=== PATIENT | female | born 1995 | race Caucasian/White ===

== ENCOUNTER 2017-02-28 10:15 | Emergency (ER) | payer OTHER ==
[~2017-02-28] VITALS: Ht 157.5 cm; Wt 123.0 kg
[2017-02-28 10:18] VITALS: TEMP 37.1; Ht 157.5 cm; Wt 123.0 kg
[2017-02-28 11:45] LABS: PREG INTERNAL NEGATIVE QC NEG CLEAR BACKGROUND; PREG INTERNAL POSITIVE QC POS CONTROL LINE
[2017-02-28] MEDS ORDERED: LEVO200T PO (11:45)
[2017-02-28] MEDS ORDERED: ERGO500037 PO (11:45)
[2017-02-28 11:48] LABS: URINE APPEARANCE CLEAR (CLEAR); URINE BILIRUBIN NEG (NEG); URINE COLOR YELLOW; URINE EPITHELIAL CELL AUTO >30 /lpf (0-5); URINE NITRITE NEG (NEG); URINE SPECIFIC GRAVITY 1.022 (1.000-1.030); UROBILINOGEN NEG (NEG); ZZUR CULT IF INDIC CLEAN CATCH NO
[2017-02-28 11:50] LABS: MANUAL MICROSCOPIC REQUIRED? NO; REVIEW REQ? NO
[2017-02-28 12:22] LABS: BASO % 0.4 %; BASO ABS # 0.03 K/uL (0-0.2); COMPLETE YES; EOS % 2.4 %; HEMATOCRIT 40.4 % (37-47); IG% 0.3 %; LYMPH % 36.2 %; MEAN CELL VOLUME 79.1 fL (80-100); MEAN CORPUSCULAR HEMOGLOBIN 25.4 pg (25-34); MEAN CORPUSCULAR HGB CONC 32.2 g/dl (32-36); MEAN PLATELET VOLUME 9.1 fL (7.4-10.4); MONO % 10.9 %; NEUT % 49.8 %; PLATELET COUNT 278 K/uL (130-400); RED BLOOD COUNT 5.11 M/uL (4.2-5.4); WHITE BLOOD COUNT 7.45 K/uL (4.8-10.8)
--- NOTE | 2017-02-28 12:39 | DIAGNOSTIC IMAGING REPORT ---
CHEST 2 VIEWS ROUTINE CLINICAL HISTORY: fever/cough eval fro pna chest pain COMPARISON STUDY: No previous studies for comparison. FINDINGS: The bones soft tissues and hemidiaphragms are normal. The cardiomediastinal silhouette is normal. The lungs are clear. The pulmonary vasculature is normal. IMPRESSION: Negative chest. The above report was generated using voice recognition software. It may contain grammatical, syntax or spelling errors. Electronically signed by: Gregorio Joya M.D. 02/28/2017 12:38 PM Dictated Date/Time: 02/28/2017 12:37 PM
[2017-02-28 12:40] LABS: BUN/CREATININE RATIO 14.8 (10-20); CALCIUM 9.3 mg/dl (8.5-10.1); CREATININE 0.7 mg/dl (0.60-1.20)
[2017-02-28 12:43] LABS: ALB/GLOB RATIO 0.7 (0.9-2)
--- NOTE | 2017-02-28 12:46 | DIAGNOSTIC IMAGING REPORT ---
ABD/PELVIS WITHOUT FOR STONE CT DOSE: 1066.20 mGycm HISTORY: Flank pain flank pain r>l eval for stone TECHNIQUE: Multiaxial CT images of the abdomen and pelvis were performed without the use of intravenous and oral contrast according to the standard department stone protocol. A dose lowering technique was utilized adhering to the principles of ALARA. COMPARISON STUDY: None. FINDINGS: Lung bases are clear. Liver spleen and pancreas are unremarkable. 3 mm nonobstructing calcification mid pole right kidney. No evidence for renal hydronephrosis. Study is negative for an obstructing urinary tract calculus. Ureters are normal in course and caliber. Bowel pattern is nonobstructive. The appendix is normal. There are several scattered diverticuli. There is no evidence of diverticulitis. Ureters anteflexed. There is no significant free fluid within the pelvic cul-de-sac. Inguinal regions are unremarkable. IMPRESSION: 1. Nonobstructing calcification right kidney. 2. No evidence for an obstructing urinary tract calculus. 3. Studies otherwise negative. The above report was generated using voice recognition software. It may contain grammatical, syntax or spelling errors. Electronically signed by: Gregorio Joya M.D. 02/28/2017 12:45 PM Dictated Date/Time: 02/28/2017 12:39 PM
--- NOTE | 2017-02-28 15:20 | DIAGNOSTIC IMAGING REPORT ---
CT SCAN OF THE LUMBAR SPINE WITHOUT IV CONTRAST CLINICAL HISTORY: Low back pain. COMPARISON STUDY: Abdominal CT performed the same day 02/28/2017. TECHNIQUE: CT scan of the lumbar spine is performed from the lower thoracic spine to the sacrum. Images reviewed in the axial, sagittal, and coronal planes. IV contrast was not administered for this examination. A dose lowering technique was utilized adhering to the principles of ALARA. The examination is degraded by a large body habitus, and by streak artifact from the body wall abutting the CT gantry. FINDINGS: The skeletal structures are well mineralized. There is no evidence of fracture or subluxation involving the lumbar spine. Vertebral body height and alignment are maintained. There is partial sacralization of the L5 vertebral body. The transverse and spinous processes are intact. There is no evidence of spondylolysis. No lytic or blastic lesion is seen. The disc spaces are maintained. A disc herniation is suggested at L4-L5. No significant facet arthropathy is identified. The paraspinous soft tissues are within normal limits. There is a nonobstructing right renal calculus. IMPRESSION: 1. No acute bony abnormality is seen involving the lumbar spine. 2. A disc herniation is noted at L4-L5. 3. Nonobstructing right renal calculus. Dictated: 02/28/2017 2:55 PM Transcribed: 02/28/2017 3:19 PM Johnathan Electronically signed by: Raymon Thomas M.D. 02/28/2017 3:33 PM Dictated Date/Time: 02/28/2017 2:55 PM
--- NOTE | 2017-02-28 16:33 | DIAGNOSTIC IMAGING REPORT ---
ULTRASOUND OF THE PELVIS CLINICAL HISTORY: Pelvic pain. COMPARISON STUDY: Pelvic CT dated 02/28/2017. TECHNIQUE: Real-time, grayscale, and color flow sonography of the pelvis is performed both transabdominally and endovaginally. Images are reviewed in the transverse and longitudinal planes. FINDINGS: Uterus: The uterus is normal in size and echotexture, measuring 9.2 x 3.5 x 3.8 cm. Endometrium: The endometrium is thickened, measuring up to 1.7 cm. Ovaries: The ovaries are normal in size and morphology. The right ovary measures 3.1 x 1.9 x 4.0 cm and the left ovary measures 1.7 x 1.4 x 1.3 cm. Small follicles are noted bilaterally. Normal Doppler waveforms are shown within both ovaries. Pelvis: There is trace free fluid in the cul-de-sac. No concerning adnexal lesion is seen. IMPRESSION: 1. No acute sonographic abnormality is seen in the pelvis. 2. The endometrial stripe appears thickened measure up to 1.7 cm. This may be related to the patient's cycle. Clinical correlation will be required. 3. Trace free fluid in the cul-de-sac is likely within physiologic limits. Electronically signed by: Raymon Thomas M.D. 02/28/2017 4:31 PM Dictated Date/Time: 02/28/2017 4:29 PM
[2017-02-28 17:05] VITALS: BP 118/72; PULSE 91; O2SAT 100
--- NOTE | 2017-02-28 17:05 | EMERGENCY ROOM VISIT NOTE ---
History Report prepared by Jeffy: Otilio Dixon Under the Supervision of: Dr. Gonzales Herrera M.D. First contact with patient: 11:21 Chief Complaint: ABDOMINAL PAIN Stated Complaint: ABD PAIN AND PAIN IN KIDNEY AREA History of Present Illness The patient is a 21 year old female who presents to the Emergency Room with complaints of waxing and waning bilateral flank pain beginning three weeks ago. Her pain is worse on the right side. The patient also complains of back pain, productive cough, and fever of 103 degrees. Her cough produces a green sputum. Her fever was noted four days ago. She denies burning with urination, but states that she has been able to see blood in her urine. The patient has been seen at [facility] four times for her symptoms, and was scheduled for a CT today. She states that her pain intensified today, and she is unable to wait for her scheduled CT. She has a history of hypothyroidism and is on Levothyroxine. She denies chills, diarrhea, or vomiting. Source of History: patient Onset: Three weeks ago Position: other (bilateral flanks, worse on the right) Timing: waxes/wanes Associated Symptoms: + fevers (103 degrees, four days ago), + cough ( productive), + back pain, No chills, No vomiting, No diarrhea Review of Systems See HPI for pertinent positives & negatives. A total of 10 systems reviewed and were otherwise negative. Past Medical & Surgical Medical Problems: (1) Hypothyroidism Family History No pertinent family history stated. Social History Smoking Status: Never Smoker Occupation Status: [employer] student Current/Historical Medications Scheduled Ergocalciferol (Vitamin D 69130 Unit), 50,000 UNIT PO 2XWK Levothyroxine Sodium (Synthroid), 200 MCG PO DAILY Allergies Coded Allergies: No Known Allergies (Unverified , 02/28/17) Physical Exam Vital Signs Date Time Temp Pulse Resp B/P (MAP) Pulse Ox O2 Delivery O2 Flow Rate FiO2 02/28/17 15:19 76 20 107/66 100 Room Air 02/28/17 14:28 79 110/65 100 Room Air 02/28/17 12:09 77 17 130/78 100 Room Air 02/28/17 10:18 37.1 95 16 135/82 100 Room Air Physical Exam Constitutional: Vital signs reviewed. Eyes: Pupils are equal round reactive to light. Conjunctiva are noninjected. ENT: Pharynx is clear without erythema or exudate. Mucous membranes are moist. Neck supple without meningeal signs. Respiratory: Clear to auscultation bilaterally. Breath sounds are equal bilaterally. Cardiovascular: Regular rate and rhythm. No rubs or gallops. GI: Soft, nondistended and nontender. Bowel sounds are present. Musculoskeletal: No peripheral edema. No lower extremity tenderness. No CVA tenderness. Integumentary: No cyanosis. Neurological: The patient is awake and alert. No focal deficits. Psychiatric: Normal affect. Medical Decision & Procedures ER Provider Diagnostic Interpretation: Radiology results as stated below per my review and the radiologist's interpretation: CHEST 2 VIEWS ROUTINE FINDINGS: The bones soft tissues and hemidiaphragms are normal. The cardiomediastinal silhouette is normal. The lungs are clear. The pulmonary vasculature is normal. IMPRESSION: Negative chest. The above report was generated using voice recognition software. It may contain grammatical, syntax or spelling errors. Electronically signed by: Gregorio Joya M.D. 02/28/2017 12:38 PM ABD/PELVIS WITHOUT FOR STONE FINDINGS: Lung bases are clear. Liver spleen and pancreas are unremarkable. 3 mm nonobstructing calcification mid pole right kidney. No evidence for renal hydronephrosis. Study is negative for an obstructing urinary tract calculus. Ureters are normal in course and caliber. Bowel pattern is nonobstructive. The appendix is normal. There are several scattered diverticuli. There is no evidence of diverticulitis. Ureters anteflexed. There is no significant free fluid within the pelvic cul-de-sac. Inguinal regions are unremarkable. IMPRESSION: 1. Nonobstructing calcification right kidney. 2. No evidence for an obstructing urinary tract calculus. 3. Studies otherwise negative. The above report was generated using voice recognition software. It may contain grammatical, syntax or spelling errors. Electronically signed by: Gregorio Joya M.D. 02/28/2017 12:[address] SCAN OF THE LUMBAR SPINE WITHOUT IV CONTRAST FINDINGS: The skeletal structures are well mineralized. There is no evidence of fracture or subluxation involving the lumbar spine. Vertebral body height and alignment are maintained. There is partial sacralization of the L5 vertebral body. The transverse and spinous processes are intact. There is no evidence of spondylolysis. No lytic or blastic lesion is seen. The disc spaces are maintained. A disc herniation is suggested at L4-L5. No significant facet arthropathy is identified. The paraspinous soft tissues are within normal limits. There is a nonobstructing right renal calculus. IMPRESSION: 1. No acute bony abnormality is seen involving the lumbar spine. 2. A disc herniation is noted at L4-L5. 3. Nonobstructing right renal calculus. Dictated: 02/28/2017 2:55 PM Transcribed: 02/28/2017 3:19 PM [email or web address] Electronically signed by: Raymon Thomas M.D. 02/28/2017 3:33 PM ULTRASOUND OF THE PELVIS FINDINGS: Uterus: The uterus is normal in size and echotexture, measuring 9.2 x 3.5 x 3.8 cm. Endometrium: The endometrium is thickened, measuring up to 1.7 cm. Ovaries: The ovaries are normal in size and morphology. The right ovary measures 3.1 x 1.9 x 4.0 cm and the left ovary measures 1.7 x 1.4 x 1.3 cm. Small follicles are noted bilaterally. Normal Doppler waveforms are shown within both ovaries. Pelvis: There is trace free fluid in the cul-de-sac. No concerning adnexal lesion is seen. IMPRESSION: 1. No acute sonographic abnormality is seen in the pelvis. 2. The endometrial stripe appears thickened measure up to 1.7 cm. This may be related to the patient's cycle. Clinical correlation will be required. 3. Trace free fluid in the cul-de-sac is likely within physiologic limits. Electronically signed by: Raymon Thomas M.D. 02/28/2017 4:31 PM ULTRASOUND OF THE PELVIS FINDINGS: Uterus: The uterus is normal in size and echotexture, measuring 9.2 x 3.5 x 3.8 cm. Endometrium: The endometrium is thickened, measuring up to 1.7 cm. Ovaries: The ovaries are normal in size and morphology. The right ovary measures 3.1 x 1.9 x 4.0 cm and the left ovary measures 1.7 x 1.4 x 1.3 cm. Small follicles are noted bilaterally. Normal Doppler waveforms are shown within both ovaries. Pelvis: There is trace free fluid in the cul-de-sac. No concerning adnexal lesion is seen. IMPRESSION: 1. No acute sonographic abnormality is seen in the pelvis. 2. The endometrial stripe appears thickened measure up to 1.7 cm. This may be related to the patient's cycle. Clinical correlation will be required. 3. Trace free fluid in the cul-de-sac is likely within physiologic limits. Electronically signed by: Raymon Thomas M.D. 02/28/2017 4:31 PM Laboratory Results 02/28/17 12:00 Red Blood Count 5.11, Mean Corpuscular Volume 79.1, Mean Corpuscular Hemoglobin 25.4, Mean Corpuscular Hemoglobin Concent 32.2, Mean Platelet Volume 9.1, Neutrophils (%) (Auto) 49.8, Lymphocytes (%) (Auto) 36.2, Monocytes (%) (Auto) 10.9, Eosinophils (%) (Auto) 2.4, Basophils (%) (Auto) 0.4, Neutrophils # (Auto ) 3.71, Lymphocytes # (Auto) 2.70, Monocytes # (Auto) 0.81, Eosinophils # (Auto ) 0.18, Basophils # (Auto) 0.03 02/28/17 12:00 Test 02/28/17 11:03 02/28/17 11:25 02/28/17 12:00 Urine Test NEG (NEG) Urine Color YELLOW Urine Appearance CLEAR (CLEAR) Urine pH 5.0 (4.5-7.5) Urine Specific [place] 1.022 (1.000-1.030) Urine Protein NEG (NEG) Urine Glucose (UA) NEG (NEG) Urine Ketones NEG (NEG) Urine Occult Blood 1+ (NEG) Urine Nitrite NEG (NEG) Urine Bilirubin NEG (NEG) Urine Urobilinogen NEG (NEG) Urine Leukocyte Esterase NEG (NEG) Urine WBC (Auto) 1-5 /hpf (0-5) Urine RBC (Auto) 5-10 /hpf (0-4) Urine Hyaline Casts (Auto) 1-5 /lpf (0-5) Urine Epithelial Cells (Auto) >30 /lpf (0-5) Urine Bacteria (Auto) NEG (NEG) White Blood Count 7.45 K/uL (4.8-10.8) Red Blood Count 5.11 M/uL (4.2-5.4) Hemoglobin 13.0 g/dL (12.0-16.0) Hematocrit 40.4 % (37-47) Mean Corpuscular Volume 79.1 fL (80-100) Mean Corpuscular Hemoglobin 25.4 pg (25-34) Mean Corpuscular Hemoglobin Concent 32.2 g/dl (32-36) Platelet Count 278 K/uL (130-400) Mean Platelet Volume 9.1 fL (7.4-10.4) Neutrophils (%) (Auto) 49.8 % Lymphocytes (%) (Auto) 36.2 % Monocytes (%) (Auto) 10.9 % Eosinophils (%) (Auto) 2.4 % Basophils (%) (Auto) 0.4 % Neutrophils # (Auto) 3.71 K/uL (1.4-6.5) Lymphocytes # (Auto) 2.70 K/uL (1.2-3.4) Monocytes # (Auto) 0.81 K/uL (0.11-0.59) Eosinophils # (Auto) 0.18 K/uL (0-0.5) Basophils # (Auto) 0.03 K/uL (0-0.2) RDW Standard Deviation 42.4 fL (36.4-46.3) RDW Coefficient of Variation 14.7 % (11.5-14.5) Immature Granulocyte % (Auto) 0.3 % Immature Granulocyte # (Auto) 0.02 K/uL (0.00-0.02) Anion Gap 6.0 mmol/L (3-11) Est Creatinine Clear Calc Drug Dose 159.1 ml/min Estimated GFR () 143.5 Estimated GFR (Non- 123.9 BUN/Creatinine Ratio 14.8 (10-20) Calcium Level 9.3 mg/dl (8.5-10.1) Total Bilirubin 0.4 mg/dl (0.2-1) Aspartate Amino Transf (AST/SGOT) 31 U/L (15-37) Alanine Aminotransferase (ALT/SGPT) 41 U/L (12-78) Alkaline Phosphatase 67 U/L (45-117) Total Protein 8.0 gm/dl (6.4-8.2) Albumin 3.4 gm/dl (3.4-5.0) Globulin 4.6 gm/dl (2.5-4.0) Albumin/Globulin Ratio 0.7 (0.9-2) Lipase 121 U/L (73-393) Influenza Type A Antigen Neg for Influ A (NEG) Influenza Type B Antigen Neg for Influ B (NEG) Laboratory results as reviewed by me. ED Course 1129: The patient was evaluated in room C2B. A complete history and physical exam was performed. 1438: I reassessed the patient. She explains that most of her pain is in her RLQ. She notes that she had a pelvic exam at [facility] previously. 1640: Upon reevaluation, the patient appeared to have improvement of her symptoms. I discussed yisel's findings with her. She verbalized agreement of the treatment plan. The patient was discharged home. Medical Decision This is a 21-year-old female presents with bilateral flank pain and fever. Differential diagnosis includes kidney stone, UTI, pyelonephritis, appendicitis , ovarian cyst, ectopic , pneumonia, URI. I did perform a limited focused review of portions of the patient's old chart on the electronic medical record. The patient has had no recent pertinent visits to this hospital. I did evaluate the patient as noted above. The patient has had bilateral flank pain with the right being greater than left for 3 weeks. She has been seen by [facility] 3 times. She was scheduled for CT today but decided to come to the emergency department as her pain increased. She states the majority of her pain is along her right flank in the right lower quadrant. She has no abdominal tenderness or CVA tenderness. IV access was established. I did order and personally review the patient's urine analysis as described above. There is blood but no signs of infection. I did order and review the patient's blood work as noted in the electronic medical record. I did order a CT of the abdomen and pelvis. I did review the images myself as well as the radiology report as described above. She does have a right renal calcification. The appendix was visualized and normal. I did reevaluate the patient. The patient stated that she was mostly concerned about her right lower quadrant pain. She states it comes intermittently. She did have a pelvic exam at [facility] which was unremarkable. I did order a pelvic ultrasound. This is not show any acute abnormality other than a thickened endometrial stripe. I also had reconstructions done on the CT to look at her lumbar spine. She does have a disc protrusion. I did discuss the test results with the patient. At this time the cause of her symptoms is unclear. I did recommend she follow with her doctor as well as a engineer sergeant for further evaluation. At this time there is no indication for admission or surgical consultation. She was discharged with her father. Medication Reconcilliation Current Medication List: was personally reviewed by me Blood Pressure Screening Patient's blood pressure: Elevated blood pressure Blood pressure disposition: Referred to PCP Impression Primary Impression: Right flank pain Additional Impression: Lumbar disc disease Scribe Attestation The scribe's documentation has been prepared under my direct and personally reviewed by me in its entirety. I confirm that the note above accurately reflects all work, treatment, procedures, and medical decision making performed by me. Departure Information Dispostion Home / Self-Care Referrals No Doctor, Assigned (PCP) Forms HOME CARE DOCUMENTATION FORM, IMPORTANT VISIT INFORMATION Patient Instructions ED Flank Pain Uncertain Cause, My [facility] Additional Instructions You have been examined and treated today on an emergency basis only. This is not a substitute for, or an effort to provide, complete comprehensive medical care. It is impossible to recognize and treat all injuries or illnesses in a single emergency department visit. It is therefore important that you follow up closely with your physician. Call as soon as possible for an appointment. Return for worsening symptoms or if you develop fever, vomiting, or any other concerning symptoms. Problem Qualifiers
== END 2017-02-28 17:06 | disposition home or self-care (01) ==
LOC: C.EDB 10:17 → C.EDC 17:06
DX: R10.31 Right lower quadrant pain (principal); N20.0 Calculus of kidney; M51.86 Other intervertebral disc disorders, lumbar region; E03.9 Hypothyroidism, unspecified

== ENCOUNTER 2017-06-12 11:11 | Emergency (ER) | payer OTHER ==
[~2017-06-12] VITALS: Ht 162.6 cm; Wt 122.1 kg
[~2017-06-12 11:11] MED LIST: ERGO500037 PO; LEVO200T PO
[2017-06-12 11:14] VITALS: TEMP 36.8; Ht 162.6 cm; Wt 122.1 kg
[2017-06-12] MEDS ORDERED: LEVO175T3 PO (11:38)
[2017-06-12] MEDS ORDERED: GLC500 PO (11:38)
[2017-06-12] MEDS ORDERED: ONDANSETRON INJ 2 MG/ML 2 ML VIAL IV STA (11:59)
[2017-06-12 12:07] LABS: BASO % 0.4 %; BASO ABS # 0.03 K/uL (0-0.2); EOS % 2.2 %; EOS ABS # 0.18 K/uL (0-0.5); HEMATOCRIT 39.1 % (37-47); IG# 0.01 K/uL (0.00-0.02); LYMPH % 35.3 %; LYMPH ABS # 2.94 K/uL (1.2-3.4); MEAN CELL VOLUME 77.7 fL (80-100); MEAN CORPUSCULAR HEMOGLOBIN 25.8 pg (25-34); MEAN CORPUSCULAR HGB CONC 33.2 g/dl (32-36); MEAN PLATELET VOLUME 8.8 fL (7.4-10.4); MONO % 10.3 %; MONO ABS # 0.86 K/uL (0.11-0.59); NEUT % 51.7 %; NEUT ABS # 4.31 K/uL (1.4-6.5); PLATELET COUNT 327 K/uL (130-400); RED CELL DISTRIBUTION WIDTH CV 13.6 % (11.5-14.5); RED CELL DISTRIBUTION WIDTH SD 38.1 fL (36.4-46.3); WHITE BLOOD COUNT 8.33 K/uL (4.8-10.8)
[2017-06-12 12:16] LABS: ALBUMIN 3.4 gm/dl (3.4-5.0); CALCIUM 9.5 mg/dl (8.5-10.1); CREATININE 0.81 mg/dl (0.60-1.20)
--- NOTE | 2017-06-12 12:16 | DIAGNOSTIC IMAGING REPORT ---
CHEST ONE VIEW PORTABLE CLINICAL HISTORY: 21 years-old Female presenting with ABDOMINAL PAIN/GI, dizziness. TECHNIQUE: Portable upright AP view of the chest was obtained. COMPARISON: 02/28/2017. FINDINGS: Cardiomediastinal silhouette normal. Mildly low lung volumes with hypoventilatory changes. No focal opacity. No large effusion or pneumothorax. Osseous structures normal. Upper abdomen normal. IMPRESSION: 1. Mildly low lung volumes with hypoventilatory changes. No other evidence of acute cardiopulmonary disease. Electronically signed by: Hank Coffey M.D. 06/12/2017 12:15 PM Dictated Date/Time: 06/12/2017 12:14 PM
--- NOTE | 2017-06-12 13:09 | DIAGNOSTIC IMAGING REPORT ---
ABDOMINAL ULTRASOUND, RIGHT UPPER QUADRANT HISTORY: Right upper quadrant abdominal pain.. COMPARISON: Abdomen and pelvis CT 02/28/2017. FINDINGS: Pancreas: The visualized pancreas demonstrates a normal echotexture. Liver: The liver is echogenic consistent with fatty change. Geographic hypoechoic area near the gallbladder fossa consistent with focal fatty sparing. Gallbladder: No gallbladder wall thickening. No gallstones. CBD: 4 mm. Right kidney: No hydronephrosis. IMPRESSION: Hepatic steatosis. Normal gallbladder. No gallstones. Electronically signed by: Hugh Lind M.D. 06/12/2017 1:08 PM Dictated Date/Time: 06/12/2017 1:07 PM
[2017-06-12] MEDS ORDERED: KETOROLAC TROMETHAMINE 30 MG/ML VIAL IV STA (13:13)
[2017-06-12] MEDS ORDERED: ONDA4TAB46 PO (13:25)
[2017-06-12] MEDS ORDERED: TAMS0.4C38 PO (13:25)
[2017-06-12] MEDS ORDERED: OXYC1TAB3 PO (13:25)
--- NOTE | 2017-06-12 13:27 | EMERGENCY ROOM VISIT NOTE ---
History Report prepared by Jeffy: Otilio Dixon Under the Supervision of: Dr. Tino Lou M.D. First contact with patient: 11:37 Chief Complaint: ABDOMINAL PAIN Stated Complaint: LOWER RIGHT ABDOMINAL PAIN AND DIZZYNESS Nursing Triage Summary: pt seen in ER 2 months ago for abd pain, unknown cause pt has had pain constantly for 2 months reports pain getting worse nausea denies v/d History of Present Illness The patient is a 21 year old [place] female with a past medical history of kidney stones and hypothyroidism who presents to the ED with a cc of waxing and waning right-sided abdominal pain beginning two months ago. Positive lightheadedness, increased urinary frequency, nausea. Describes pain as an "ache " and sometimes "sharp". Negative hematuria, vomiting, chest pain, breast pain, back pain. Pain is not worsened with eating. Patient was seen in the ED two months ago for similar symptoms and was diagnosed with kidney stones. No recent travel. No recent antibiotic use. No known sick contacts. No abnormal foods. No recent surgeries. No control. Last normal movement was this morning, which was abnormally soft. LNMP was earlier this month. Source of History: patient Onset: Two months ago Position: abdomen (right sided) Quality: ache, sharp Timing: waxes/wanes Associated Symptoms: + nausea, + urinary symptoms (Increased frequency. ), No chest pain, No vomiting, No back pain Note: Additional symptoms: lightheadedness. Negative: breast pain, hematuria. Review of Systems See HPI for pertinent positives and negatives. A total of ten systems were reviewed and were otherwise negative. Past Medical & Surgical Medical Problems: (1) Hypothyroidism (2) Kidney stone Family History No pertinent family history stated. Social History Smoking Status: Never Smoker Occupation Status: [employer] student Current/Historical Medications Scheduled Ergocalciferol (Vitamin D 13115 Unit), 50,000 UNIT PO 2XWK Levothyroxine Sodium (Levothyroxine Sodium), 175 MCG PO DAILY Metformin HCl (Metformin HCl), 500 MG PO DAILY Tamsulosin Hcl (Flomax), 0.4 MG PO DAILY Scheduled PRN Ondansetron Hcl (Zofran), 4 MG PO Q8H PRN for Nausea Oxycodone Immediate Rel Tab (Roxicodone Ir), 5 MG PO Q6H PRN for Pain Allergies Coded Allergies: No Known Allergies (Unverified , 02/28/17) Physical Exam Vital Signs Date Time Temp Pulse Resp B/P (MAP) Pulse Ox O2 Delivery O2 Flow Rate FiO2 06/12/17 12:19 90 18 123/79 100 Room Air 06/12/17 11:14 36.8 97 20 152/84 100 Room Air Physical Exam GENERAL: Awake, alert, well-appearing, NAD. Obese. Wearing glasses. HENT: Normocephalic, atraumatic. EYES: Normal conjunctiva. Sclera non-icteric. NECK: Supple. No nuchal rigidity. FROM. RESPIRATORY: CTAB, no rhonchi, wheezing, crackles CARDIAC: RRR, no MRG ABDOMEN: Soft, ND, BS+. Questionable right CVA TTP. RUQ TTP. Negative Mckeon's. Negative obturators. Negative psoas. MSK: No chest wall TTP, no LE edema NEURO: GCS 15, CN 2-12 intact, moves all 4s on command SKIN: No rash or jaundice noted. Medical Decision & Procedures ER Provider Diagnostic Interpretation: Radiology results as stated below per my review and radiologist interpretation: ABDOMINAL ULTRASOUND, RIGHT UPPER QUADRANT FINDINGS: Pancreas: The visualized pancreas demonstrates a normal echotexture. Liver: The liver is echogenic consistent with fatty change. Geographic hypoechoic area near the gallbladder fossa consistent with focal fatty sparing. Gallbladder: No gallbladder wall thickening. No gallstones. CBD: 4 mm. Right kidney: No hydronephrosis. IMPRESSION: Hepatic steatosis. Normal gallbladder. No gallstones. Electronically signed by: Hugh Lind M.D. 06/12/2017 1:08 PM CHEST ONE VIEW PORTABLE FINDINGS: Cardiomediastinal silhouette normal. Mildly low lung volumes with hypoventilatory changes. No focal opacity. No large effusion or pneumothorax. Osseous structures normal. Upper abdomen normal. IMPRESSION: 1. Mildly low lung volumes with hypoventilatory changes. No other evidence of acute cardiopulmonary disease. Electronically signed by: Hank Coffey M.D. 06/12/2017 12:15 PM Laboratory Results 06/12/17 11:30 Red Blood Count 5.03, Mean Corpuscular Volume 77.7, Mean Corpuscular Hemoglobin 25.8, Mean Corpuscular Hemoglobin Concent 33.2, Mean Platelet Volume 8.8, Neutrophils (%) (Auto) 51.7, Lymphocytes (%) (Auto) 35.3, Monocytes (%) (Auto) 10.3, Eosinophils (%) (Auto) 2.2, Basophils (%) (Auto) 0.4, Neutrophils # (Auto ) 4.31, Lymphocytes # (Auto) 2.94, Monocytes # (Auto) 0.86, Eosinophils # (Auto ) 0.18, Basophils # (Auto) 0.03 06/12/17 11:30 Test 06/12/17 11:30 06/12/17 12:05 White Blood Count 8.33 K/uL (4.8-10.8) Red Blood Count 5.03 M/uL (4.2-5.4) Hemoglobin 13.0 g/dL (12.0-16.0) Hematocrit 39.1 % (37-47) Mean Corpuscular Volume 77.7 fL (80-100) Mean Corpuscular Hemoglobin 25.8 pg (25-34) Mean Corpuscular Hemoglobin Concent 33.2 g/dl (32-36) Platelet Count 327 K/uL (130-400) Mean Platelet Volume 8.8 fL (7.4-10.4) Neutrophils (%) (Auto) 51.7 % Lymphocytes (%) (Auto) 35.3 % Monocytes (%) (Auto) 10.3 % Eosinophils (%) (Auto) 2.2 % Basophils (%) (Auto) 0.4 % Neutrophils # (Auto) 4.31 K/uL (1.4-6.5) Lymphocytes # (Auto) 2.94 K/uL (1.2-3.4) Monocytes # (Auto) 0.86 K/uL (0.11-0.59) Eosinophils # (Auto) 0.18 K/uL (0-0.5) Basophils # (Auto) 0.03 K/uL (0-0.2) RDW Standard Deviation 38.1 fL (36.4-46.3) RDW Coefficient of Variation 13.6 % (11.5-14.5) Immature Granulocyte % (Auto) 0.1 % Immature Granulocyte # (Auto) 0.01 K/uL (0.00-0.02) Anion Gap 9.0 mmol/L (3-11) Est Creatinine Clear Calc Drug Dose 141.7 ml/min Estimated GFR () 120.3 Estimated GFR (Non- 103.8 BUN/Creatinine Ratio 16.8 (10-20) Calcium Level 9.5 mg/dl (8.5-10.1) Total Bilirubin 0.5 mg/dl (0.2-1) Direct Bilirubin 0.1 mg/dl (0-0.2) Aspartate Amino Transf (AST/SGOT) 36 U/L (15-37) Alanine Aminotransferase (ALT/SGPT) 47 U/L (12-78) Alkaline Phosphatase 65 U/L (45-117) Total Protein 8.0 gm/dl (6.4-8.2) Albumin 3.4 gm/dl (3.4-5.0) Lipase 99 U/L (73-393) Urine Color YELLOW Urine Appearance CLOUDY (CLEAR) Urine pH 5.0 (4.5-7.5) Urine Specific [place] 1.027 (1.000-1.030) Urine Protein NEG (NEG) Urine Glucose (UA) NEG (NEG) Urine Ketones NEG (NEG) Urine Occult Blood 2+ (NEG) Urine Nitrite NEG (NEG) Urine Bilirubin NEG (NEG) Urine Urobilinogen NEG (NEG) Urine Leukocyte Esterase NEG (NEG) Urine WBC (Auto) 1-5 /hpf (0-5) Urine RBC (Auto) 5-10 /hpf (0-4) Urine Hyaline Casts (Auto) 1-5 /lpf (0-5) Urine Epithelial Cells (Auto) >30 /lpf (0-5) Urine Bacteria (Auto) 1+ (NEG) Urine Pathogenic Casts /lpf (0) Urine Test NEG (NEG) Laboratory results reviewed by me Medications Administered Medications (Trade) Dose Ordered Sig/Chris Route Start Time Stop Time Status Last Admin Dose Admin Ondansetron HCl (Zofran Inj) 4 mg NOW STAT IV 06/12/17 11:59 06/12/17 12:01 DC 06/12/17 12:09 4 MG Ketorolac Tromethamine (Toradol Inj) 30 mg NOW STAT IV 06/12/17 13:13 06/12/17 13:14 DC 06/12/17 13:18 30 MG ED Course 1154: The patient was evaluated in room B8. A complete history and physical exam was performed. 1325: I reevaluated the patient. Discussed results and discharge instructions: she verbalized understanding and agreement. The patient is ready for discharge. Medical Decision The patient is a 21 year old [place] female with a past medical history of kidney stones and hypothyroidism who presents to the ED with a cc of waxing and waning right sided abdominal pain beginning two months ago. Differential diagnosis: Etiologies such as appendicitis, diverticulitis, PUD, biliary pathology, UTI, pancreatitis, obstruction, mesenteric ischemia, aortic pathology, infections, inflammatory bowel disease, renal colic, as well as others were entertained. Nursing notes reviewed. Ancillary studies and prior records reviewed. Patient was seen and evaluated the bedside. Patient does relate that she has a prior history of some kidney stones. Patient does present with some complains of some right-sided abdominal discomfort. This primarily superior in the right upper quadrant. Patient did not have any true CVA tenderness to palpation. Patient denies any hematuria. Patient denies fevers or chills. Patient has had some nausea but without vomiting. Patient did have blood work completed, chest x-ray, gallbladder ultrasound, and urinalysis. Patient's blood work is fairly unremarkable. White blood cell count within normal limits. Patient's kidney function is normal. Altace and lipase within normal limits. Patient's chest x-ray is clear. Gallbladder ultrasound shows some mild hepatic steatosis but no convincing evidence of choledocholithiasis, cholelithiasis, or cholecystitis. Of note the patient does have some blood in the urine. Given her history of kidney stones we will treat her presumptively. Given that the patient only has mild discomfort and the patient has normal kidney function do not believe she needs further imaging at this time. Patient was told of these findings was given follow-up with urology as needed. Patient was given strict follow-up, discharge, and return precautions. All questions were answered. Patient was deemed suitable for outpatient follow-up at this time. Patient agreed with the plan of care and was safely discharged home. Medication Reconcilliation Current Medication List: was personally reviewed by me Blood Pressure Screening Patient's blood pressure: Normal blood pressure Blood pressure disposition: Did not require urgent referral Impression Primary Impression: Kidney stone Scribe Attestation The scribe's documentation has been prepared under my direction and personally reviewed by me in its entirety. I confirm that the note above accurately reflects all work, treatment, procedures, and medical decision making performed by me. Departure Information Dispostion Home / Self-Care Prescriptions Ondansetron Hcl (ZOFRAN) 4 Mg Tab 4 MG PO Q8H Y for Nausea, #15 TAB Prov: Tino Lou M.D. 06/12/17 Oxycodone Immediate Rel Tab (ROXICODONE IR) 5 Mg Tab 5 MG PO Q6H Y for Pain for 3 Days, #12 TAB Prov: Tino Lou M.D. 06/12/17 Tamsulosin Hcl (FLOMAX) 0.4 Mg Cap 0.4 MG PO DAILY for 10 Days, #10 CAP Take in the evening before bed as it may cause decreased blood pressure. Prov: Tino Lou M.D. 06/12/17 Referrals No Doctor, Assigned (PCP) Shahab Warner M.D. [facility] Patient Instructions Kidney Stones - [facility], Kidney Stones Expectant Therapy, Kidney Stones Prevent, [facility], Later [facility] Additional Instructions Please return to the emergency department if you have worsening or recurrent symptoms not amenable to at-home treatment. Please call for a follow-up appointment with her primary care physician. Please take your medications as prescribed. If you have other concerns and/or complaints please feel free to also call your primary care physician's office or return the ED for further evaluation, management, and treatment. You were found to have an elevated blood pressure today (>120 sytolic or >90 diastolic). Per medicare guidelines, you need to follow up with this blood pressure screening with your Primary Care Physician (PCP). For a new PCP call [phone]. You received narcotic or benzodiazepene medication while in the emergency room today. This is an addictive medication that may cause drowziness as well as constipation. Do not drive, operate heavy machinery, or drink alcohol under the influence of this medication. You may take 600 mg Ibuprofen every 6 hours as needed for pain with food for no more than 2 consecutive days. You may take tylenol 1000 mg every 6 hours as needed for pain. You may take motrin and tylenol separately or at the same time. If you still have discomfort you may take the narcotic medication. Please be advised that these medications are habit forming, can make you sleepy , and can cause breathing issues. Do not use if you require your full attention. Take only as prescribed. Take your medications as prescribed. If taking an antibiotic consider taking a probiotic and/or eating yogurt, but at the least, please take with food as it can cause upset stomach. If culture results are not available at discharge, if they are positive for concern of infection, you will be informed of the results as soon as they are available. If you were seen between 11pm and 7AM all radiology reads will be re-read by our in house staff. If any major discrepancies are discovered, you will be notified. You have been examined and treated today on an emergency basis only. This is not a substitute for, or an effort to provide, complete comprehensive medical care. It is impossible to recognize and treat all injuries or illnesses in a single emergency department visit. It is therefore important that you follow up closely with [facility], your PCP, and/or your specialist(s). Call as soon as possible for an appointment. Thank you for your time and consideration. I look forward to speaking with you again soon. Please don't hesitate to call us if you have any questions.
[2017-06-12 13:44] VITALS: BP 128/71; PULSE 92; O2SAT 99
== END 2017-06-12 13:45 | disposition home or self-care (01) ==
LOC: C.EDB 11:13
DX: N20.0 Calculus of kidney (principal); R10.31 Right lower quadrant pain; E03.9 Hypothyroidism, unspecified; Z79.899 Other long term (current) drug therapy; R42 Dizziness and giddiness